=== PATIENT | female | born 1935 | race Caucasian/White ===

== ENCOUNTER 2025-07-24 12:33 | Emergency (ER) | payer MEDICARE, OTHER ==
[2025-07-24] MEDS ORDERED: Sodium Chloride 0.9% 10 ML Syringe FLUSH PRN (13:05)
[2025-07-24 13:23] LABS: BASOPHILS PERCENT AUTO 0.5 % (0.0-1.0); EOSINOPHILS PERCENT AUTO 1.5 % (1.0-3.0); LYMPHOCYTES PERCENT AUTO 20.8 % (20.5-50.1); MONOCYTES PERCENT AUTO 8.2 % (2-8); NEUTROPHILS PERCENT AUTO 69.0 % (42.2-75.2); PLATELET COUNT,PLT 200 10^3/uL (150-450); RED BLOOD CELL COUNT 4.94 10^6/uL (4.2-5.4); WHITE BLOOD CELL COUNT,WBC 8.9 10^3/uL (5.0-10.0)
[2025-07-24 13:41] LABS: B-TYPE NATRIURETIC PEPTIDE,BNP 26 pg/ml (0-100)
[2025-07-24 14:42] LABS: A/G RATIO 1.0; ALANINE AMINOTRANSFERASE,ALT 26 U/L (14-59); ASPARTATE AMNIOTRANSFERASE,AST 17 U/L (15-37); BILIRUBIN TOTAL 0.4 mg/dL (0.2-1.0); BLOOD UREA NITROGEN,BUN 45 mg/dL (7-18); CARBON DIOXIDE,CO2 26 mmol/L (21-32); CHLORIDE,CL 102 mmol/L (98-107); CREATININE 1.26 mg/dL (0.55-1.02); EST CRCL DRUG DOSING (CG) 29.43 mL/min; ESTIMATED GFR 41 mL/min (>=60); GLUCOSE RANDOM 120 mg/dL (70-99); POTASSIUM,K 5.2 mmol/L (3.5-5.1); PROTEIN TOTAL,TP 7.5 g/dL (6.4-8.2); SODIUM,NA 139 mmol/L (136-145); TSH ULTRASENSITIVE 5.86 uIU/mL (0.36-3.74)
[2025-07-24 14:45] LABS: APPEARANCE,URINE CLEAR (CLEAR); GLUCOSE,URINE NEGATIVE (NEGATIVE); OCCULT BLOOD,URINE NEGATIVE (NEGATIVE)
[2025-07-24 14:48] LABS: LACTIC ACID 1.6 mmol/L (0.4-2.0)
== END 2025-07-24 16:10 ==
LOC: DL.ED 12:33
DX: E86.0 Dehydration (principal); E87.5 Hyperkalemia; N28.9 Disorder of kidney and ureter, unspecified; E03.9 Hypothyroidism, unspecified; Z88.7 Allergy status to serum and vaccine; Z88.2 Allergy status to sulfonamides; Z88.8 Allergy status to other drugs, medicaments and biological substances; Z79.899 Other long term (current) drug therapy
CPT/HCPCS: 36415; 70450; 71046; 80053; 81003; 83605; 83735; 83880; 84145; 84443; 84484; 85025; 87428; 93005; 96360; 96361; 99285; J7030